=== PATIENT | female | born 1950 | race Caucasian/White ===

== ENCOUNTER → 2020-03-25 | Outpatient (CLI) | payer OTHER ==
[~2020-03-25] VITALS: Ht 160 cm; Wt 108.9 kg
[~2020-03-25] MED LIST: COZAAR 25 MG TA25 M1 PO; LIPITOR 20 MG T20 M1 PO; MOBIC7.5 MG PO; NORVASC 2.5 MG2.5 M1 PO; SYNTHROID112 MC1 PO
[2020-03-25 15:19] VITALS: BP 154/92
--- NOTE | 2020-03-25 15:34 | NUR ---
Pain Clinic Assessment: 1. History of Osteoarthritis: Not Applicable History of Rheumatoid Arthritis: Not Applicable 2. Height: 5 ft. 3 in. 160.0 cm. Weight: 240.0 lb. oz. 108.864 kg. Patient's BMI: 42.5 3. Vital Signs: BP: 154/92 Pulse: 65 Resp: 20 Temp: 02 Sat: 100 ECG Mon: 4. Pain Intensity: 7 5. Fall Risk: Dizziness: Needs help standing or walking: Fallen in the last 3 months: Fall risk comments: 6. Patient on Blood Thinner: None 7. History of Hypertension: Y 8. Opioid Therapy greater than 6 weeks: N Opiate Contract Signed: 9. Risk Assessment Tool Provided: 10. Functional Assessment Tool: 11. Recreational Drug Use: Never Drug Type: Tobacco Use: Never Smoker Tobacco Type: Amount or Packs/day: How Many Years: Alcohol Use: No Frequency: Quant:
--- NOTE | 2020-04-01 14:07 | HPC ---
[facility] [place] [address] PAIN MANAGEMENT CONSULTATION Name: LUCIUS DAVIS Room #: REG SHIRA Alexander#: [id number] Admission: 03/25/20 Attend Phys: Juan Ross DO Discharge: Date of : 54 Report #: [id number] THIS REPORT FOR: cc: Cathi Johnson MD,Juan Madrigal MD, DO ~ DATE OF SERVICE: 03/25/2020 REFERRING PHYSICIAN: Cathi Johnson MD CHIEF COMPLAINT: Low back pain, right lower extremity pain with paresthesias. HISTORY OF PRESENT ILLNESS: As you know, the patient is a pleasant 69-year-old female who reports acute onset of low back pain and right anterior thigh pain that began 10/21/2019. The patient denies specific injury or trauma that may have led to symptom development. She trialed conservative treatment options initially trying rest, relaxation and qskk-mmp-gzbilup medications. Unfortunately, this did not provide much in the way of improvement. She sought evaluation through her primary care physician who ultimately sent the patient for imaging studies. She had an MRI of the lumbar spine, which showed right paracentral lateral disk extrusion at the L3-L4 level that appeared recent. She was then subsequently referred to our clinic to discuss interventional treatment options for suspected lumbar radiculopathy. The patient reports today her pain is constant with an intermittent shooting and electrical like sensations. She describes the pain as shooting, electrical, numbness and tingling when describing symptoms. She places current pain score of 7/10, daily averages 7/10, worst pain has been as 10/10. The patient states that sitting, walking and standing exacerbates symptoms; lying down and not moving tends to improve pain. She has been referred to our service to discuss treatment options for suspected lumbar radiculopathy. PAST MEDICAL HISTORY: 1. History of pyelonephritis. 2. Pulmonary embolism x 2. 3. Endometriosis. 4. Hypertension. 5. Chronic low back pain. 6. Hypothyroidism. 7. History of right invasive ductal carcinoma. 8. Morbid obesity. PAST SURGICAL HISTORY: 1. Tonsillectomy. 2. Treatment of the right breast cancer with radiation and excision of the [facility] [address] [place] [address] PAIN MANAGEMENT CONSULTATION Name: LUCIUS DAVIS Room #: REG [facility]#: [id number] Admission: 03/25/20 Attend Phys: Juan Ross DO Discharge: Date of : 54 Report #: [id number] lesion. SOCIAL HISTORY: The patient reports she is a nonsmoker. Denies IV or illicit drug use. Denies any chronic alcohol use. 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 She is working, not receiving workmen's compensation nor is she trying to obtain disability benefits. She is not in litigation in regards to her pain. She is unaccompanied at today's visit. REVIEW OF SYSTEMS: Positive for fatigue and weakness, frequent and recurrent headaches, wearing corrective eyewear, hearing loss with tinnitus, chronic sinus problems with rhinitis, frequent urination, nocturia, lightheadedness and dizziness, numbness and tingling sensations involving the right lower extremity, depression, excessive thirst and urination, morbid obesity. All other review of systems negative per 12-point review of systems other than those listed in history of present illness. PAIN IMPACT SCORE: 32/70, moderate interference of daily activities secondary to pain. ALLERGIES: ERYTHROMYCIN. CURRENT MEDICATIONS: Atorvastatin 20 mg per day, amlodipine 2.5 mg once a day, losartan 25 mg per day, Mobic 7.5 mg twice a day, levothyroxine 112 mcg per day. IMAGING: MRI of the lumbar spine obtained 03/07/2020 shows a right paracentral lateral disk extrusion at the L3-L4 level, which extends into the right lateral recess effacing the right ventral cord and compresses the right L4 nerve root. There is a far lateral broad-based protrusion surrounding the endplate with marrow edema, moderate central canal stenosis and right neural foraminal narrowing. There is mild to moderate changes to the central canal at L4-L5 secondary to a disk osteophyte complex and facet arthropathy. There are no significant changes at the L5-S1 level. PQRS: The patient has arthritic changes of the lumbar spine, bilateral hips and knees. No rheumatoid arthritis. She is placing pain intensity today at 7/10. She is not a fall risk nor has she had a fall in last 3 months. She is not on blood thinners, but is treated for hypertension. She is not on any opioids and has a low opiate addiction potential. Pain impact score is 32/70, moderate interference of daily activities secondary to pain. PHYSICAL EXAMINATION: VITAL SIGNS: Blood pressure 154/92, pulse is 65, respiratory rate 20 and unlabored. The patient is 100% on room air. Height 5 feet 3 inches tall, weight 240 pounds, BMI calculated 42.5. GENERAL: Well-developed, well-nourished, well-hydrated, class 3 morbidly obese 69-year-old female. She appears stated age. Pain is rated today at around [address] [address] PAIN MANAGEMENT CONSULTATION Name: LUCIUS DAVIS Room #: DAISY Munoz#: [id number] Admission: 03/25/20 Attend Phys: Juan Ross DO Discharge: Date of : 54 Report #: [id number] 03/28. HEENT: Normocephalic, atraumatic. Pupils equal, round and reactive. Extraocular muscles are intact. NEUROLOGIC: Speech is fluent. The patient deemed a good historian. LUNGS: Appear clear. No wheeze, rhonchi, no rales audible. She is able to complete all sentences without shortness of air. There is no use of accessory muscles. CARDIOVASCULAR: Regular. No appreciable gallop, no rub. ABDOMEN: Soft. Severely obese, normoactive bowel sounds. EXTREMITIES: Show no clubbing, no cyanosis, no edema. MUSCULOSKELETAL: Lower extremity strength equal and symmetrical, 5/5, intact to light touch from L1 through S2 dermatomes. Seated straight leg raising negative. Supine straight leg raising positive on the right with distribution along what appears to be the L4 nerve root. Tactile sensation remains intact despite the positive supine straight leg raising. Gait is mildly antalgic favoring the right lower extremity over left. Micah's test is negative. Modified Gaenslen's positive for axial low back pain. Ankle clonus negative. Babinski is negative. The patient is able to toe walk and heel walk without complication. ASSESSMENT: 1. Symptomatic lumbar radiculopathy. 2. Displacement of lumbar intervertebral disk with radiculopathy. 3. Facet arthropathy of the lumbar spine. 4. Class 3 morbid obesity. PLAN: 1. Based on today's physical exam and history the patient has provided, the description the patient uses in regards to pain as well as the distribution of symptoms, the likely source of the patient's pain is the lumbar radiculopathy. The patient's distribution of symptoms on the right appear to correlate to the L4 dermatomal distribution, which is confirmed with findings of her right paracentral disk protrusion at the L3-L4 level affecting the L4 nerve root. We discussed with the patient the treatment options based on this MRI and the findings on physical exam today, the following treatment options were proposed. We discussed physical therapy, stretching exercises, core strengthening and a concerted effort at weight loss. We discussed medication management with suggestions of treatment utilizing neuropathic pain medication such as amitriptyline, nortriptyline, Cymbalta, Lyrica, and gabapentin. We also discussed lumbar epidural injections under fluoroscopic guidance for which the patient was referred to our clinic. We then discussed spinal cord stimulator therapy and ultimately surgical decompression to address this L3-L4 level. After reviewing the risks and benefits of all proposed treatment options, the patient chose to undergo lumbar epidural injection under fluoroscopic guidance. 2. No medication changes made at today's visit. [place] [address] PAIN MANAGEMENT CONSULTATION Name: LUCIUS DAVIS Room #: REG SHIRA Munoz#: [id number] Admission: 03/25/20 Attend Phys: Juan Ross DO Discharge: Date of : 54 Report #: [id number] current medical therapy as previously prescribed. 3. The patient has been advised of the risks and benefits of a lumbar epidural injection. These risks include but are not necessarily limited to bleeding, bruising, infection, worsening pain, no relief of pain, also risk of temporary or permanent muscle weakness, temporary or permanent nerve damage, possible paralysis and . The patient states understood and wished to proceed. 4. We wish to thank the referring physician, Dr. Catih Johnson for the opportunity to see this patient in consultation. We will keep you apprised of response to treatment as we address lumbar radicular symptoms. Again, we wish to thank you for the opportunity to see the patient in consultation. PROCEDURE NOTE DESCRIPTION OF PROCEDURE: Lumbar epidural steroid injection under fluoroscopic guidance. This is the first procedure of the first series that the patient is undergoing. After obtaining written consent, the patient was taken back to the fluoroscopy suite, placed in a prone position with pillow under the abdomen to decrease lumbar lordosis. The skin overlying the lumbosacral area was then prepped and draped in aseptic fashion. The lumbar vertebral interspace was then identified by AP fluoroscopy. The skin and subcutaneous tissue overlying the target site of injection was anesthetized with 3 mL 1% lidocaine. A 20 gauge 3.5 inch Tuohy needle was then advanced under fluoroscopic guidance towards the epidural space using a right paramedian approach. The epidural space was identified using loss of resistance to air technique. After negative aspiration for heme or cerebrospinal fluid, a total of 1 mL of Omnipaque was injected. A lumbar epidurogram was confirmed using both AP and lateral fluoroscopy. After negative aspiration for heme or cerebrospinal fluid, 5 mL of a solution containing 2 mL 40 mg per mL, 80 mg total triamcinolone along with 3 mL of lidocaine 1% was injected in increments. Contrast spread was noted posterior epidural space. The needle was then retracted approximately half way and needle tract flushed with 1 mL of lidocaine. Needle was then removed. There were no apparent sensory or motor deficits in the lower extremity following the procedure. A sterile bandage was placed over the injection site. The heart rate, pulse, oximetry and blood pressure were continuously monitored after the procedure. There were no apparent complications. The patient tolerated the procedure well and was carefully escorted to the recovery room in [address] [address] PAIN MANAGEMENT CONSULTATION Name: LUCIUS DAVIS Room #: [facility]#: [id number] Admission: 03/25/20 Attend Phys: Juan Ross DO Discharge: Date of : 54 Report #: [id number] stable condition. There were no apparent complications. After meeting discharge criteria, the patient was then discharged home. <ELECTRONICALLY SIGNED> By: Juan Ross DO 04/01/20 1407 [id number] Juan Ross DO /nt
== END | disposition home or self-care (01) ==
LOC: PAIN 07:00
PROVIDERS: ATTEND Anesthesiology Pain Medicine
DX: M54.5 Low back pain (principal); M51.16 Intervertebral disc disorders with radiculopathy, lumbar region; E66.01 Morbid (severe) obesity due to excess calories; I10 Essential (primary) hypertension; E03.9 Hypothyroidism, unspecified; G89.29 Other chronic pain; Z79.899 Other long term (current) drug therapy; Z98.890 Other specified postprocedural states

== ENCOUNTER → 2021-01-06 | Outpatient (CLI) | payer OTHER ==
[~2021-01-06] VITALS: Ht 160 cm; Wt 109.9 kg
[~2021-01-06] MED LIST changes: +APAP W/CODEINE1 TA2 PO; +GABAPENTIN 100100 MG PO
[2021-01-06 14:11] VITALS: BP 179/87
--- NOTE | 2021-01-06 14:16 | NUR ---
Pain Clinic Assessment: 1. History of Osteoarthritis: Left Lower Extremity Right Lower Extremity Left Upper Extremity Right Upper Extremity History of Rheumatoid Arthritis: Not Applicable 2. Height: 5 ft. 3 in. 160.0 cm. Weight: 242.2 lb. oz. 109.861 kg. Patient's BMI: 42.9 3. Vital Signs: BP: 179/87 Pulse: 70 Resp: 20 Temp: 02 Sat: 98 ECG Mon: 4. Pain Intensity: 8 5. Fall Risk: Dizziness: N Needs help standing or walking: N Fallen in the last 3 months: N Fall risk comments: 6. Patient on Blood Thinner: None 7. History of Hypertension: Y 8. Opioid Therapy greater than 6 weeks: N Opiate Contract Signed: 9. Risk Assessment Tool Provided: 10. Functional Assessment Tool: 11. Recreational Drug Use: Never Drug Type: Tobacco Use: Never Smoker Tobacco Type: Amount or Packs/day: How Many Years: Alcohol Use: No Frequency: Quant:
--- NOTE | 2021-01-12 10:03 | HPC ---
[address] [address] PAIN MANAGEMENT CONSULTATION Name: LUCIUS DAVIS Room #: REG SHIRA Alexander#: [id number] Admission: 01/06/21 Attend Phys: Juan Ross DO Discharge: Date of : 54 Report #: [id number] THIS REPORT FOR: cc: Cathi Johnson MD, Michelle R. MD Johnson, James E. DO ~ DATE OF SERVICE: 01/06/2021 CHIEF COMPLAINT: Low back pain, right lower extremity pain with paresthesias. HISTORY OF PRESENT ILLNESS: As you know, the patient is a very pleasant 70-year-old female returning in followup visit to undergo lumbar epidural injection under fluoroscopic guidance. She is placing current pain score at 8/10. We saw the patient last week to begin planning for today's epidural injection. She is now 2 weeks post COVID-19 injection, returning today in followup visit to undergo lumbar epidural injection. The patient has had no new injury or traumas over the last week that may have led to symptom continuation. She returns for epidural injection under fluoroscopic guidance. She has done very well with previous epidural injection reporting 95% improvement in overall pain lasting for 5 months. ALLERGIES: ERYTHROMYCIN. CURRENT MEDICATIONS: Gabapentin, Tylenol No. 3 with Codeine, atorvastatin, amlodipine, losartan, meloxicam, levothyroxine. SOCIAL HISTORY: The patient reports nonsmoker. Denies IV or illicit drug use. Denies any chronic alcohol use. She is unaccompanied today. IMAGING: No new imaging available. PQRS: The patient has known arthritic changes of the lumbar spine, bilateral hips, hands and knees. No rheumatoid arthritis. The patient is placing current pain score at 8/10. She is not a fall risk, has not had a fall in last 3 months. She is not on blood thinners, but is treated for hypertension. She is not on chronic opioids, has a low opiate addiction potential. Pain impact is again 32/70, moderate interference of daily activities secondary to pain. PHYSICAL EXAMINATION: VITAL SIGNS: Blood pressure 179/87, pulse 70, respiratory rate 20 and unlabored. The patient is 98% on room air. Height 5 feet 3 inches tall, weight 242.2 pounds, BMI calculated 42.9. GENERAL: Well-developed, well-nourished, well-hydrated, class III, morbidly obese 70-year-old female, appearing stated age, pain is rated today 8/10. HEENT: Normocephalic, atraumatic. Pupils equal, round, and responsive. EXTREMITIES: Show no clubbing, no cyanosis. No appreciable edema. [address] [address] PAIN MANAGEMENT CONSULTATION Name: LUCIUS DAVIS Room #: REG [facility] M.Juwan.#: [id number] Admission: 01/06/21 Attend Phys: Juan Ross DO Discharge: Date of : 54 Report #: [id number] MUSCULOSKELETAL: Lower extremity strength equal and symmetrical 5/5. Muscle bulk and tone equal and symmetrical in comparing lower extremities. Seated straight leg raising negative. Supine straight leg raising positive on the right. Micah's test is negative. Gait mildly antalgic favoring right lower extremity over left. ASSESSMENT: 1. Symptomatic lumbar radiculopathy. 2. Displacement of lumbar intervertebral disk with radiculopathy. 3. Facet arthropathy of the lumbar spine. 4. Class 3 morbid obesity. PLAN: 1. The patient returns today in followup visit to undergo lumbar epidural injection under fluoroscopic guidance. We have established today's appointment for the patient to undergo the procedure. She has been advised risks and benefits of this injection, states understood and wished to proceed. 2. No medication changes made at today's visit. The patient will continue current medical therapy as prior prescribed. 3. We will plan to see the patient back in followup visit on an as needed basis for the next in the series of epidural injections. We are hopeful the patient will see good and prolonged benefit with today's procedure. PROCEDURE NOTE DESCRIPTION OF PROCEDURE: L5-S1 intralaminar epidural steroid injection under fluoroscopic guidance. This is the second procedure of the first series that the patient is undergoing. After obtaining written consent, the patient was taken back to the fluoroscopy suite, placed in a prone position with pillow under the abdomen to decrease lumbar lordosis. The skin overlying the lumbosacral area was then prepped and draped in aseptic fashion. The L5-S1 vertebral interspace was then identified by AP fluoroscopy. The skin and subcutaneous tissue overlying the target site of injection was anesthetized with 3 mL 1% lidocaine. A 20-gauge 3.5 inch Tuohy needle was then advanced under fluoroscopic guidance towards the epidural space using a parasagittal approach. The epidural space was identified using loss of resistance to air technique. After negative aspiration for heme or cerebrospinal fluid, a total of 1 mL of Omnipaque was injected. A lumbar epidurogram was confirmed using both AP and lateral fluoroscopy. After negative aspiration for heme or cerebrospinal fluid, 5 mL of a solution containing 2 mL 40 mg per mL, 80 mg total triamcinolone along with 3 mL of lidocaine 1% was injected in increments. Contrast spread was noted in the posterior epidural space. The needle was then retracted approximately half way [address] [address] PAIN MANAGEMENT CONSULTATION Name: LUCIUS DAVIS Room #: REG [facility]#: [id number] Admission: 01/06/21 Attend Phys: Juan Ross DO Discharge: Date of : 54 Report #: [id number] and needle tract flushed with 1 mL of Lidocaine. Needle was then removed. There were no apparent sensory or motor deficits in the lower extremity following the procedure. A sterile bandage was placed over the injection site. The heart rate, pulse, oximetry and blood pressure were continuously monitored after the procedure. There were no complications. The patient tolerated the procedure well and was carefully escorted to the recovery room in stable condition. There were no apparent complications. After meeting discharge criteria, the patient was then discharged home. <ELECTRONICALLY SIGNED> By: Juan Ross DO 01/12/21 1003 [id number] Juan Ross DO /nt
== END | disposition home or self-care (01) ==
LOC: PAIN 13:01
PROVIDERS: ATTEND Anesthesiology Pain Medicine
DX: M51.16 Intervertebral disc disorders with radiculopathy, lumbar region (principal); M47.26 Other spondylosis with radiculopathy, lumbar region; E66.01 Morbid (severe) obesity due to excess calories; I10 Essential (primary) hypertension; M19.90 Unspecified osteoarthritis, unspecified site; Z98.890 Other specified postprocedural states; Z79.899 Other long term (current) drug therapy; Z88.8 Allergy status to other drugs, medicaments and biological substances

== ENCOUNTER → 2021-04-24 | Outpatient (CLI) | payer OTHER | LOC: SJCVC 13:53 | PROVIDERS: ATTEND Internal Medicine | DX: R94.31 Abnormal electrocardiogram [ECG] [EKG] (principal); Z13.220 Encounter for screening for lipoid disorders; I10 Essential (primary) hypertension; E03.9 Hypothyroidism, unspecified; E78.00 Pure hypercholesterolemia, unspecified; I49.1 Atrial premature depolarization; I25.2 Old myocardial infarction; R07.2 Precordial pain; R06.09 Other forms of dyspnea; Z68.41 Body mass index [BMI] 40.0-44.9, adult; Z88.8 Allergy status to other drugs, medicaments and biological substances; E66.01 Morbid (severe) obesity due to excess calories; Z79.82 Long term (current) use of aspirin; Z79.899 Other long term (current) drug therapy; Z82.49 Family history of ischemic heart disease and other diseases of the circulatory system ==

== ENCOUNTER → 2021-05-06 | Outpatient (CLI) | payer OTHER ==
[~2021-05-06] VITALS: Ht 160 cm; Wt 109.8 kg
[~2021-05-06] MED LIST changes: +NEURONTIN300 MG PO
[2021-05-06 11:38] VITALS: BP 167/88
--- NOTE | 2021-05-06 11:43 | NUR ---
Pain Clinic Assessment: 1. History of Osteoarthritis: Left Lower Extremity Right Lower Extremity Left Upper Extremity Right Upper Extremity History of Rheumatoid Arthritis: Not Applicable 2. Height: 5 ft. 3 in. 160.0 cm. Weight: 242.0 lb. oz. 109.771 kg. Patient's BMI: 42.9 3. Vital Signs: BP: 167/88 Pulse: 110 Resp: 16 Temp: 02 Sat: 98 ECG Mon: 4. Pain Intensity: 5 5. Fall Risk: Dizziness: Y Needs help standing or walking: N Fallen in the last 3 months: N Fall risk comments: 6. Patient on Blood Thinner: None 7. History of Hypertension: Y 8. Opioid Therapy greater than 6 weeks: N Opiate Contract Signed: 9. Risk Assessment Tool Provided: 10. Functional Assessment Tool: 11. Recreational Drug Use: Never Drug Type: Tobacco Use: Never Smoker Tobacco Type: Amount or Packs/day: How Many Years: Alcohol Use: Yes Frequency: Special Occasions Quant: 1
--- NOTE | 2021-05-13 10:47 | HPC ---
[facility] [address] [place] [address] PAIN MANAGEMENT CONSULTATION Name: LUCIUS DAVIS Room #: REG SHIRA FloydUlysses#: [id number] Admission: 05/06/21 Attend Phys: Juan oRss DO Discharge: Date of : 54 Report #: [id number] THIS REPORT FOR: cc: Cathi Johnson MD,Juan Madrigal MD, DO ~ cc: Cathi Johnson MD DATE OF SERVICE: 05/06/2021 DATE OF SERVICE: 05/06/2021. REFERRING PHYSICIAN: Dr. Cathi Johnson. CHIEF COMPLAINT: Low back pain, right lower extremity pain with paresthesias HISTORY OF PRESENT ILLNESS: As you know, the patient is a very pleasant 70-year-old female returning in followup visit to address residual pain after a lumbar epidural injection under fluoroscopic guidance provided at last visit. That epidural injection according to the patient did not provide much in the way of improvement. She returns today requesting a possible adjustments in medication management in hopes of improving symptoms. She denies specific injury or trauma that may have led to symptom development. She has been in her normal state of health until just recently where she noted acute changes in her low back and right lower extremity symptoms after the previous epidural injection. She returns today in followup visit for adjustments in medication management. ALLERGIES: ERYTHROMYCIN. CURRENT MEDICATIONS: Gabapentin, Tylenol No. 3 with codeine, atorvastatin, amlodipine, losartan, meloxicam, levothyroxine. SOCIAL HISTORY: The patient reports she is a nonsmoker. Denies IV or illicit drug use. Denies any chronic alcohol use. She is unaccompanied today. IMAGING: No new imaging available. PQRS: The patient has known arthritic changes of lumbar spine, bilateral hips, bilateral hands and knees. No rheumatoid arthritis. She is placing current pain score 5/10. She is not a fall risk, does not have fall in last 3 months. She is not on blood thinners, but is treated for hypertension. She is on chronic opioids and has a low opiate addiction potential. Pain impact is a 32/70 moderate interference of daily activities secondary to pain. PHYSICAL EXAMINATION: VITAL SIGNS: Blood pressure 167/88, pulse is 110, respiratory rate 16 and [facility] [address] [place] [address] PAIN MANAGEMENT CONSULTATION Name: LUCIUS DAVIS Room #: [facility].#: [id number] Admission: 05/06/21 Attend Phys: Juan Ross DO Discharge: Date of : 54 Report #: [id number] unlabored. The patient 98% on room air. Height 5 feet 3 inches tall, weight 242 pounds, BMI calculated 42.9. GENERAL: Well-developed, well-nourished, well-hydrated, class 3 morbidly obese, 70-year-old female appearing stated age. She is placing current pain score at 5/10. HEENT: Normocephalic, atraumatic. Pupils equal, round and responsive to light. Extraocular muscles are intact. Speech fluent. The patient is wearing a mask in compliance with COVID-19 regulations. EXTREMITIES: Show no clubbing, no cyanosis. No appreciable edema. MUSCULOSKELETAL: Lower extremity strength equal and symmetrical 5/5 intact to light touch from L1 through S2 dermatomes. Seated straight leg raising negative. Supine straight leg raising is positive on the right. Fabere's test is negative. ASSESSMENT: 1. Symptomatic lumbar radiculopathy. 2. Displacement of lumbar intervertebral disk with radiculopathy. 3. Facet arthropathy, lumbar spine. 4. Class 3 morbid obesity. 5. Chronic intractable pain. PLAN: 1. The patient returns today in followup visit indicating minimal improvement with the epidural injection provided at our visit of 01/06/2021. She returns today to discuss adjustments in medication management. We had discussed in the past and had started the patient on gabapentin and recommended adjustments in that medication today in hopes of improving pain. The patient is agreeable with that plan. She is currently taking gabapentin 200 mg b.i.d., will deescalate her dose quite rapidly to reach as high level of 600 mg t.i.d. The patient is agreeable. 2. The patient was provided prescription of gabapentin 300 mg tablets. She is to take 1 tab p.o. b.i.d. starting today in 3 days, then increase to 1 tab p.o. t.i.d. or 300 mg 3 times a day. She will continue this medication for 3 days. No improvement in symptoms, no side effects such as sleepiness, disorientation, confusion or mental slowing, then increase to 300 mg morning, 300 mg noon and 600 mg at night. Continue for 3 more nights. Again, if no improvement in symptoms, no side effects, then increase to 600 mg morning, 300 mg noon and 600 mg at night. She will continue that for 3 more nights. If no improvement in symptoms, no side effects then 600 mg b.i.d. A prescription #180 of the capsules were sent to local pharmacy with 2 refills, 3 months' worth of medication. The patient was advised anytime during this titration, she notes improvement in symptoms stabilize at that dose, no further escalation, no improvement in symptoms, no side effects. Continue the titration as directed. 4. We will plan to see the patient back in followup visit on an as needed basis [facility] [address] [place] [address] PAIN MANAGEMENT CONSULTATION Name: LUCIUS DAVIS Room #: DAISY Munoz#: [id number] Admission: 05/06/21 Attend Phys: Juan Ross DO Discharge: Date of : 54 Report #: [id number] to discuss medications that might require further adjustments and interventional therapies if necessary. <ELECTRONICALLY SIGNED> By: Juan Ross DO 05/13/21 [id number] Juan Ross DO /nt
== END ==
LOC: PAIN
PROVIDERS: ATTEND Anesthesiology Pain Medicine
DX: M51.16 Intervertebral disc disorders with radiculopathy, lumbar region (principal); E66.01 Morbid (severe) obesity due to excess calories; G89.4 Chronic pain syndrome; Z79.899 Other long term (current) drug therapy; Z79.891 Long term (current) use of opiate analgesic

== ENCOUNTER → 2021-05-06 | Outpatient (CLI) | payer OTHER | LOC: SJCVCIMAG | PROVIDERS: ATTEND Internal Medicine | DX: I35.0 Nonrheumatic aortic (valve) stenosis (principal); I51.7 Cardiomegaly; R94.31 Abnormal electrocardiogram [ECG] [EKG]; R07.89 Other chest pain; R06.00 Dyspnea, unspecified; Z79.899 Other long term (current) drug therapy ==

== ENCOUNTER → 2021-05-08 | Outpatient (CLI) | payer OTHER | LOC: SJCVCIMAG 09:31 | PROVIDERS: ATTEND Internal Medicine | DX: I49.3 Ventricular premature depolarization (principal); I10 Essential (primary) hypertension; E03.9 Hypothyroidism, unspecified; E66.01 Morbid (severe) obesity due to excess calories; E78.5 Hyperlipidemia, unspecified; Z79.899 Other long term (current) drug therapy; Z79.82 Long term (current) use of aspirin; Z72.89 Other problems related to lifestyle; Z88.1 Allergy status to other antibiotic agents ==

== ENCOUNTER → 2021-06-05 | Outpatient (CLI) | payer OTHER | LOC: SJCVC 09:49 | PROVIDERS: ATTEND Internal Medicine | DX: I10 Essential (primary) hypertension (principal); N80.9 Endometriosis, unspecified; M51.26 Other intervertebral disc displacement, lumbar region; E03.9 Hypothyroidism, unspecified; E66.01 Morbid (severe) obesity due to excess calories; Z85.3 Personal history of malignant neoplasm of breast; I26.99 Other pulmonary embolism without acute cor pulmonale; N12 Tubulo-interstitial nephritis, not specified as acute or chronic; Z79.82 Long term (current) use of aspirin; Z79.899 Other long term (current) drug therapy; Z82.49 Family history of ischemic heart disease and other diseases of the circulatory system; Z88.1 Allergy status to other antibiotic agents; Z88.8 Allergy status to other drugs, medicaments and biological substances ==

== ENCOUNTER → 2021-07-10 | Outpatient (CLI) | payer OTHER | LOC: SJCVC 11:02 | PROVIDERS: ATTEND Internal Medicine | DX: I10 Essential (primary) hypertension (principal); N80.9 Endometriosis, unspecified; M51.26 Other intervertebral disc displacement, lumbar region; E03.9 Hypothyroidism, unspecified; D05.11 Intraductal carcinoma in situ of right breast; E66.01 Morbid (severe) obesity due to excess calories; I26.99 Other pulmonary embolism without acute cor pulmonale; N12 Tubulo-interstitial nephritis, not specified as acute or chronic; Z72.89 Other problems related to lifestyle; Z88.1 Allergy status to other antibiotic agents; Z79.82 Long term (current) use of aspirin; Z79.899 Other long term (current) drug therapy ==

== ENCOUNTER → 2021-08-21 | Outpatient (CLI) | payer OTHER | LOC: SJCVC 10:36 | PROVIDERS: ATTEND Internal Medicine | DX: I10 Essential (primary) hypertension (principal); E03.9 Hypothyroidism, unspecified; E66.01 Morbid (severe) obesity due to excess calories; I35.0 Nonrheumatic aortic (valve) stenosis; E78.00 Pure hypercholesterolemia, unspecified; R94.31 Abnormal electrocardiogram [ECG] [EKG]; R60.0 Localized edema; Z88.1 Allergy status to other antibiotic agents; Z88.8 Allergy status to other drugs, medicaments and biological substances; Z79.899 Other long term (current) drug therapy; Z72.89 Other problems related to lifestyle ==

== ENCOUNTER → 2021-09-25 | Outpatient (CLI) | payer OTHER | LOC: SJCVC 10:42 | PROVIDERS: ATTEND Internal Medicine | DX: I10 Essential (primary) hypertension (principal); E78.00 Pure hypercholesterolemia, unspecified; E03.9 Hypothyroidism, unspecified; R60.0 Localized edema; I05.0 Rheumatic mitral stenosis; Z72.89 Other problems related to lifestyle; Z88.1 Allergy status to other antibiotic agents; Z88.8 Allergy status to other drugs, medicaments and biological substances; Z79.82 Long term (current) use of aspirin; Z79.899 Other long term (current) drug therapy; Z82.49 Family history of ischemic heart disease and other diseases of the circulatory system ==

== ENCOUNTER → 2021-10-13 | Outpatient (CLI) | payer OTHER ==
[~2021-10-13] VITALS: Ht 157.5 cm; Wt 113.4 kg
[~2021-10-13] MED LIST changes: +NEURONTIN 300M300 M2 PO
[2021-10-13 09:30] VITALS: BP 130/65
--- NOTE | 2021-10-13 09:40 | NUR ---
Pain Clinic Assessment: 1. History of Osteoarthritis: Left Lower Extremity Right Lower Extremity Left Upper Extremity Right Upper Extremity History of Rheumatoid Arthritis: Not Applicable 2. Height: 5 ft. 2 in. 157.5 cm. Weight: 250.0 lb. oz. 113.400 kg. Patient's BMI: 45.7 3. Vital Signs: BP: 130/65 Pulse: 57 Resp: 16 Temp: 02 Sat: 97 ECG Mon: 4. Pain Intensity: 5 5. Fall Risk: Dizziness: N Needs help standing or walking: N Fallen in the last 3 months: N Fall risk comments: 6. Patient on Blood Thinner: None 7. History of Hypertension: Y 8. Opioid Therapy greater than 6 weeks: N Opiate Contract Signed: 9. Risk Assessment Tool Provided: low-0 10. Functional Assessment Tool: 11. Recreational Drug Use: Never Drug Type: Tobacco Use: Never Smoker Tobacco Type: Amount or Packs/day: How Many Years: Alcohol Use: Yes Frequency: Special Occasions Quant: 1
== END ==
LOC: PAIN 08:06
PROVIDERS: ATTEND Clinical Nurse Specialist Adult Health
DX: M51.16 Intervertebral disc disorders with radiculopathy, lumbar region (principal); M17.0 Bilateral primary osteoarthritis of knee; M75.101 Unspecified rotator cuff tear or rupture of right shoulder, not specified as traumatic; E66.01 Morbid (severe) obesity due to excess calories; G89.29 Other chronic pain; Z88.8 Allergy status to other drugs, medicaments and biological substances; Z79.899 Other long term (current) drug therapy